=== PATIENT | female | born 1950 | race Caucasian/White ===

== ENCOUNTER 2025-02-22 11:14 | Outpatient (AMB) | payer MEDICARE, OTHER, SELFPAY ==
--- NOTE | 2025-02-22 11:20 | AM.OFFWIN_ITS ---
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 - Onset was approximately three days ago . - Rash initially appeared on the L forea rm and has spread to right arm and R forehead - Symptoms include blistering and itchi ng; no exacerbation with warm water. - Possible exposure to toxic plants duri ng yard work and insecticide use. Review of Systems - Dermatological: Reports rash with blis tering and itching. - Others: Denies significant exacerbatio n with warm water, denies systemic symptoms. Physical Exam General: Well developed, well nourished, in no acute distress. Appears stated age. Lungs: speaking in full sentences Skin: See images below; rash located bilat arms and R forehead. There is no drainage. There is blistering. No signs of infection. Palm/face are clear. Discussion Notes I discussed with Mariya the likely diagnosis of contact dermatitis due to possible exposure to toxic plants such as poison andree or similar during yard work activities. Based on the conversation, I explained the rationale for treatment with oral steroids, emphasizing that prednisone is to be dosed at a high level initially and tapered off to reduce inflammation. The potential side effects of prednisone, such as gastrointestinal upset, were addressed, with recommendations to take it with food. I suggested Tecnu, an [id number]-ngohaew product, for additional management to dry blistered areas and prevent further spread of oils. I advised changing towels frequently, using covering clothing at night, and washing bed sheets with hot water. Mariya was informed that the prescription would be sent to her chosen pharmacy and given instructions to follow up if symptoms worsened or failed to improve. I emphasized the availability of our clinic's operating hours for any return concerns. Lastly, I ensured her understanding and agreement with the treatment plan, referencing that the note will be sent to her primary care provider. Assessment and Plan 1. Contact Dermatitis due to Exposure to Toxic Plants - Initiate prednisone with tapering sche dule. - Use Tecnu for skin management. - Advise on proper hygiene and monitorin g for changes. - Confirm prescription and update primar y care. Patient Instructions - Take prednisone as prescribed, startin g with 50 mg and tapering dose. - Use Tecnu in-shower exfoliating scrub as recommended. - Change towels and bed sheets regularly ; use hot water. - Monitor rash; seek care if it worsens. 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 - [facility] provided Consent Patient was informed and verbally consented to the use of an ambient scribe for clinic note documentation during this visit. Physical Exam Vital Signs: Last Vital Signs Temp 98.1 F 02/22/25 11:25 Pulse 81 02/22/25 11:25 BP 102/70 02/22/25 11:25 Pulse Ox 98 02/22/25 11:25 Oxygen Delivery Method Room Air 02/22/25 11:25 BMI result Body Mass Index 25.7 Assessment & Plan Assessment & Plan (1) Contact dermatitis: Code(s): L25.9 - Unspecified contact dermatitis, unspecified cause Qualifiers: Contact dermatitis type: irritant Contact dermatitis trigger: non-food plants Qualified Code(s): L24.7 - Irritant contact dermatitis due to plants, except food Plan . Medications: New 2 prednisone 5 tabs x 2 days, 4 tabs x 2 days, 3 tabs x 2 days, 2 tabs x 2 days, 1 tab x 2 days and then STOP. 10 mg PO DIRECTED 30 tabs 0RF 10 days Patient Instructions: TECNU OVER THE COUNTER, IN SHOWER EXFOLIATING SCRUB Patient Instructions - Take prednisone as prescribed, starting with 50 mg and tapering dose. - Use Tecnu in-shower exfoliating scrub as recommended. - Change towels and bed sheets regularly; use hot water. - Monitor rash; seek care if it worsens. 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 Coding Level of Care Code Est Pt Level 3 (84978) Diagnoses Irritant contact dermatitis due to plants, except food L24.7 Contact dermatitis type: irritant Contact dermatitis trigger: non-food plants
[2025-02-22 11:25] VITALS: BP 102/70; PULSE 81; TEMP 36.7; O2SAT 98; BMI 25.7
== END 2025-02-22 11:39 | disposition home or self-care (01) ==
PROVIDERS: PCP Internal Medicine; Visit Provider Nurse Practitioner Family
DX: L24.7 Irritant contact dermatitis due to plants, except food (principal)

== ENCOUNTER → 2025-02-22 11:14 | Outpatient (BNVA) | payer MEDICARE, OTHER, SELFPAY | PROVIDERS: PCP Internal Medicine | DX: L24.7 Irritant contact dermatitis due to plants, except food (principal) | CPT/HCPCS: 99212 ==